=== PATIENT | female | born 1985 | race Caucasian/White ===

== ENCOUNTER → 2017-02-23 | Outpatient (CLI) | payer BC ==
[~2017-02-23] MED LIST: VENL150C56 PO
== END | disposition home or self-care (01) ==
LOC: C.LABSPEC 13:55
PROVIDERS: ATTEND Physician Assistant
DX: N89.8 Other specified noninflammatory disorders of vagina (principal)

== ENCOUNTER → 2017-02-23 | Outpatient (CLI) | payer BC | END | disposition home or self-care (01) | LOC: C.PAPS 14:05 | PROVIDERS: ATTEND Physician Assistant | DX: Z01.419 Encounter for gynecological examination (general) (routine) without abnormal findings (principal) ==

== ENCOUNTER → 2017-03-01 | Outpatient (CLI) | payer BC ==
[2017-03-01 15:06] LABS: HEMATOCRIT 31.8 % (37-47); MEAN CELL VOLUME 69.3 fL (80-100); MEAN CORPUSCULAR HEMOGLOBIN 21.6 pg (25-34); MEAN CORPUSCULAR HGB CONC 31.1 g/dl (32-36); MEAN PLATELET VOLUME 10.5 fL (7.4-10.4); PLATELET COUNT 422 K/uL (130-400); RED BLOOD COUNT 4.59 M/uL (4.2-5.4); WHITE BLOOD COUNT 7.23 K/uL (4.8-10.8)
== END | disposition home or self-care (01) ==
LOC: C.LAB1850 13:28
PROVIDERS: ATTEND Physician Assistant
DX: N92.1 Excessive and frequent menstruation with irregular cycle (principal)

== ENCOUNTER → 2017-03-01 | Outpatient (CLI) | payer BC ==
--- NOTE | 2017-03-01 15:45 | MAMMOGRAPHY REPORT ---
BILATERAL DIGITAL DIAGNOSTIC MAMMOGRAM TOMOSYNTHESIS WITH CAD AND TARGETED LEFT ULTRASOUND: 03/01/2017 CLINICAL HISTORY: 31 year-old woman with a four-month history of intermittent pain/soreness in the la teral left breast, 12:00 through 6:00 axes. Patient reports no focal mass, skin changes or nipple di scharge. No family history of breast cancer. TECHNIQUE: Bilateral breast tomosynthesis in addition to standard 2D mammography was performed. Curre nt study was also evaluated with a Computer Aided Detection (CAD) system. COMPARISON: No prior exams were available for comparison. BREAST COMPOSITION: There are scattered areas of fibroglandular density in both breasts. FINDINGS: There is a reniform circumscribed 9 mm mass with feeding vessel in the upper outer middle o ne third of the left breast, most compatible with an intramammary lymph node. No other suspicious ma ss, architectural distortion or cluster of microcalcifications is seen bilaterally. Targeted ultrasound was performed in the lateral left breast in the areas of pain pointed out by the patient (approximate 12:00 through 6:00 axes of the left breast, with particular attention to the 2:0 0 and 3:00 left breast). On ultrasound, in the 2:00 left breast, 5 cm from the nipple, there is a mo rphologically normal intramammary lymph node measuring 8.2 mm, with a thin cortex measuring 2.0 mm. No other suspicious solid or cystic mass is seen throughout the lateral left breast to explain the pa tient's pain/soreness. IMPRESSION: ACR BI-RADS CATEGORY 2: BENIGN, TARGETED ULTRASOUND ACR BI-RADS CATEGORY 2: BENIGN 1. There is no suspicious mammographic or sonographic finding to explain the nonfocal left lateral m astalgia. Therefore, clinical follow-up is recommended, as biopsy of a clinically suspicious mass sh ould not be precluded by negative imaging. 2. Overall, no mammographic evidence of malignancy bilaterally. Would recommend routine screening o nce age-appropriate. These results and recommendations were discussed with the patient at the time of the exam. Approximately 10% of breast cancers are not detected with mammography. A negative mammographic report should not delay biopsy if a clinically suggestive mass is present. Lizet Sheppard M.D. ay/:03/01/2017 14:30:23 Assistant Professor Of Mathematics: Eusebia RUSH(Kelle)(M), [facility] letter sent: Normal /2 BI-RADS Code: ACR BI-RADS Category 2: Benign Ultrasound BI-RADS: ACR BI-RADS Category 2: Benign
== END | disposition home or self-care (01) ==
LOC: C.MAMM 13:38
PROVIDERS: ATTEND Physician Assistant
DX: N64.4 Mastodynia (principal)